=== PATIENT | female | born 1935 | race Caucasian/White ===

== ENCOUNTER 2017-12-26 01:45 | Emergency (ER) | payer MEDICARE ==
[~2017-12-26] VITALS: Ht 157.5 cm; Wt 61.2 kg
--- NOTE | 2017-12-26 02:40 | Diagnostic Imaging Report ---
History: Fall Comparison studies: None Technique: Axial images were obtained through the cervical region.. Coronal and sagittal images reconstructed from the axial data. Dose modulation, iterative reconstruction, and/or weight based adjustment of the mA/kV was utilized to reduce the radiation dose to as low as reasonably achievable. Intravenous contrast: None Findings: Soft tissues: Incidental atherosclerotic calcifications in the carotid bulbs and in the aortic arch Atlantoaxial articulation: Intact. Alignment: Increased lordosis centered at C4-5. No scoliosis. Cervicomedullary junction: No abnormalities. The foramen magnum is patent. Vertebrae: Moderately demineralized. No fractures, infection or neoplasm. Degenerative changes: Moderate at the atlantoaxial articulation. Mildly degenerated disks at C5-6 and C6-7. Degenerative changes of the facets throughout the cervical region is worse on the right at C4-5 and C5-6 Foraminal stenosis from C3 -C7, worst on the right at C5-6 is due to facet and uncovertebral arthrosis. No significant spinal canal stenosis. IMPRESSION: 1. No acute abnormalities. 2. Cannot adequately evaluate for ligament, spinal cord and or vascular abnormalities. 3. Degenerative changes as described. Signed by: Dr. Tima Simons M.D. on 12/26/2017 2:36 AM
[2017-12-26] MEDS ORDERED: ONDANSETRON HCL 4 MG ORAL DISINTEGRATING TAB PO ONE (03:15)
--- NOTE | 2017-12-26 03:23 | Diagnostic Imaging Report ---
HIP LEFT 2-3 VW (+/- PELVIS) Comparison: None Clinical history: Status post fall Findings: Slightly limited by rotation/positioning. Postsurgical changes status bilateral total hip arthroplasties. No periprosthetic fracture or dislocation. Significant osteoporosis of the proximal left femur about the arthroplasty. Mild lucency along the left acetabular medial screw. Impression: 1. No acute fracture. 2. Focal lucency about the left acetabular screw. This is nonspecific but can be seen with particle disease. Correlate with priors to document stability and interval change. Signed by: Dr Kayla Siddiqui MD on 12/26/2017 3:19 AM
--- NOTE | 2017-12-26 03:25 | Diagnostic Imaging Report ---
CHEST SINGLE (PORTABLE), 12/26/2017 1:49 AM Technique: CHEST SINGLE (PORTABLE) Comparison: None available. Clinical history: Status post fall, left hip pain Findings: See Impression Impression: 1. Lines/Tubes: Left chest wall dual-lead pacer. Median sternotomy wires intact. Right axillary clips. 2. Mildly enlarged cardiac silhouette. 3. Central vascular congestion. No overt edema or consolidation. 4. No effusion or pneumothorax. Signed by: Dr Kayla Siddiqui MD on 12/26/2017 3:21 AM
--- NOTE | 2017-12-26 03:30 | Diagnostic Imaging Report ---
History:fall Comparison studies: None Technique: Axial images were obtained from the skull base to the vertex. Coronal and sagittal images reconstructed from the axial data. Dose modulation, iterative reconstruction, and/or weight based adjustment of the mA/kV was utilized to reduce the radiation dose to as low as reasonably achievable. Intravenous contrast: None Findings: Scalp/skull: No abnormalities. Extra-axial spaces: No masses. No fluid collections. Brain sulci: Moderately prominent. Ventricles: Moderate compensatory dilatation. No hydrocephalus. Parenchyma: Ill defined hypodensities in the supratentorial white matter are small vessel ischemic changes. No masses, hemorrhage, acute or chronic cortical vascular insults. Sellar/suprasellar region: No abnormalities. Craniocervical junction: Patent foramen magnum. No Chiari one malformation. Incidental findings: Atherosclerotic calcifications in the carotid siphons and vertebral arteries. Impression: No acute abnormalities. Chronic findings: 1. Moderate generalized volume loss. 2. Mild supratentorial white matter small vessel ischemic changes. Signed by: Dr. Tima Simons M.D. on 12/26/2017 3:26 AM
[2017-12-26 05:05] VITALS: BP 135/75
== END 2017-12-26 05:17 ==
LOC: ER 01:45
DX: S00.83XA Contusion of other part of head, initial encounter (principal); W01.0XXA Fall on same level from slipping, tripping and stumbling without subsequent striking against object, initial encounter; Y93.01 Activity, walking, marching and hiking; Y92.128 Other place in nursing home as the place of occurrence of the external cause; F03.90 Unspecified dementia, unspecified severity, without behavioral disturbance, psychotic disturbance, mood disturbance, and anxiety
CPT/HCPCS: 70450; 71045; 72125; 99284

== ENCOUNTER 2018-01-07 18:51 | Inpatient (IN) | payer MEDICARE ==
[~2018-01-07] VITALS: Ht 152.4 cm; Wt 49.0 kg
[2018-01-07] MEDS ORDERED: SODIUM CHLORIDE 0.9% 1000ML 1,000 ML IV STA (19:30)
--- NOTE | 2018-01-07 20:12 | Diagnostic Imaging Report ---
Examination: CT head without contrast Clinical Indication: Fall; head trauma. Technique: Transaxial noncontrast images from the skull base through the vertex were obtained. Sagittal and coronal reformatted images were done. Dose modulation, iterative reconstruction, and/or weight based adjustment of the mA/kV was utilized to reduce the radiation dose to as low as reasonably achievable. Comparison: Head CT dated 12/26/2017. Findings: Scalp: No abnormalities. Bones: Intact. No fractures. No blastic or lytic lesions. Brain sulci: Moderate volume loss for patient's age. Ventricles: No hydrocephalus. Extra-axial space: No abnormalities. Parenchyma: There are mild confluent areas of low-attenuation within subcortical and periventricular white matter, nonspecific, but could represent microvascular ischemic disease. No masses, hemorrhage, or acute or chronic cortical based vascular insults. Suprasellar region: No abnormalities. Craniocervical junction: The foramen magnum is patent. No Chiari one malformation. Incidental findings: Atherosclerotic calcification of the cavernous and supraclinoid internal carotid and V4 segments of the bilateral vertebral arteries. Prior bilateral cataract surgery. Impression: 1. No acute intracranial abnormality when compared to prior head CT dated 12/26/2017. 2. Unchanged mild chronic microvascular ischemic change and moderate volume loss. Signed by: Dr. Suad Price M.D. on 01/07/2018 8:09 PM
--- NOTE | 2018-01-07 20:23 | Diagnostic Imaging Report ---
Examination: CT CERVICAL SPINE WITHOUT CONTRAST HISTORY:Neck injury and pain after fall. COMPARISON:12/26/2017. TECHNIQUE: Multidetector helical axial images were obtained without contrast from the foramen magnum to T1. Coronal and sagittal reformatted images were done. Bone and soft tissue windows were evaluated. Dose modulation, iterative reconstruction, and/or weight based adjustment of the mA/kV was utilized to reduce the radiation dose to as low as reasonably achievable. FINDINGS: Alignment:Normal alignment and lordosis. Vertebrae: Normal height with decreases bone mineralization. No acute fracture, infection or neoplasm. Disc space heights: Mildly narrowed at C5-C6. Caliber of spinal canal: Developmentally normal. Posterior fossa and craniocervical junction: Foramen magnum patent. No Chiari 1 malformation. Soft tissues: Atherosclerotic calcification of the bilateral carotid bifurcations. Degenerative changes: Mild bilateral facet arthropathy from C2-C5. Foraminal stenosis from C3 -C7, worst on the right at C5-6 is due to facet and uncovertebral arthrosis. No disc bulge/ herniation or significant canal stenosis. IMPRESSION: No acute abnormalities. No change from prior CT dated 12/26/2017. Signed by: Dr. Suad Price M.D. on 01/07/2018 8:20 PM
--- NOTE | 2018-01-07 20:33 | Diagnostic Imaging Report ---
Frontal and lateral views of the chest. HISTORY: Fall, trauma, pain COMPARISON: Chest radiograph December 26, 2017 DISCUSSION: Right anterior oblique rotation. Implanted left-sided cardiac device with dual-lead. Lungs: A small to moderate right pleural effusion with adjacent atelectasis. Underlying pathology could be obscured. Heart and mediastinum: The cardiomediastinal silhouette appears unremarkable. Postsurgical changes of the mediastinum. Bones: Diffusely decreased mineralization of the osseous structures limits bone detail. Multiple median sternotomy wires. IMPRESSION: 1. Small to moderate right pleural effusion with adjacent atelectasis. Recommend short term follow up routine PA and lateral chest radiographs, in 6-8 weeks, to evaluate for return to baseline. 2. Diffuse osseous demineralization. 3. No acute displaced fracture. Signed by: Dr. Simon Roberts D.O., M.M.M. on 01/07/2018 8:30 PM
--- NOTE | 2018-01-07 20:35 | Diagnostic Imaging Report ---
PELVIS - 1 VIEW HISTORY: Fall, trauma, pain COMPARISON: Left hip radiographs December 26, 2017 FINDINGS: Bones: Diffusely decreased mineralization of the osseous structures limits bone detail. Some of the osseous structures are partially obscured by stool and overlying bowel gas. No acute displaced fracture. Joints: Partially visualized bilateral total hip arthroplasties. Soft tissues: The soft tissues appear unremarkable. IMPRESSION: 1. Diffuse osseous demineralization. 2. No acute displaced fracture. 3. Unchanged appearance of the visualized portions of the bilateral total hip arthroplasties. Signed by: Dr. Simon Roberts D.O., M.M.M. on 01/07/2018 8:32 PM
--- NOTE | 2018-01-07 20:37 | Diagnostic Imaging Report ---
RIGHT SHOULDER - 2 VIEWS HISTORY: Fall, pain COMPARISON: None available. FINDINGS: Bones: Diffusely decreased mineralization of the osseous structures limits bone detail. No acute displaced fracture. Joints: Minimal acromioclavicular and glenohumeral degenerative changes. Soft tissues: Postsurgical changes at the right axilla and the visualized portions of the mediastinum. IMPRESSION: 1. Diffuse osseous demineralization. 2. No acute displaced fracture. Signed by: Dr. Simon Roberts D.O., M.M.M. on 01/07/2018 8:33 PM
[2018-01-07 20:53] LABS: BASOPHILS % 0.6 % (0.0-1.0); EOSINOPHILS # (AUTO) 0.1 (0.0-0.4); EOSINOPHILS % 1.2 % (0.0-6.0); HEMATOCRIT 36.5 % (34.2-44.1); HEMOGLOBIN 11.4 g/dL (12.0-16.0); LYMPHOCYTES % 15.3 % (18.0-39.1); MEAN CORPUSCULAR HEMOGLOBIN 28.9 pg (28-32); MEAN CORPUSCULAR HGB CONC 31.2 g/dL (31-35); MEAN CORPUSCULAR VOLUME 92.6 fL (81-99); MONOCYTES # (AUTO) 0.8 (0.2-0.8); MONOCYTES % 11.9 % (4.4-11.3); NEUTROPHILS # (AUTO) 4.7 (2.1-6.9); NEUTROPHILS % 70.6 % (38.7-80.0); PLATELET COUNT 324 x10e3/uL (140-360); RED BLOOD COUNT 3.94 x10e6/uL (3.6-5.1); RED CELL DISTRIBUTION WIDTH 14.9 % (11.7-14.4)
[2018-01-07 21:02] LABS: INR 0.93; PROTHROMBIN TIME 13.3 seconds (11.9-14.5)
[2018-01-07 21:03] LABS: PARTIAL THROMBOPLASTIN TIME 29.7 seconds (23.8-35.5)
[2018-01-07 21:05] LABS: BILIRUBIN,URINE 1+ (NEGATIVE); CLARITY,URINE SL CLOUDY (CLEAR); COLOR,URINE YELLOW (YELLOW); KETONES,URINE TRACE (NEGATIVE); LEUKOCYTE ESTERASE ,URINE NEGATIVE (NEGATIVE); NITRITE,URINE NEGATIVE (NEGATIVE); PROTEIN,URINE DIPSTICK TRACE (NEGATIVE); URINE UROBILINOGEN 1 mg/dL (0.2 - 1)
[2018-01-07 21:10] LABS: ALANINE AMINOTRANSFERASE 16 IU/L (0-55); ALBUMIN 3.6 g/dL (3.5-5.0); ALKALINE PHOSPHATASE 109 IU/L (40-150); ANION GAP 15.1 mmol/L (8-16); BLOOD UREA NITROGEN 30 mg/dL (7-26); BUN/CREATININE RATIO 21 (6-25); CALCIUM 10.7 mg/dL (8.4-10.2); CARBON DIOXIDE 23 mmol/L (22-29); CHLORIDE 107 mmol/L (98-107); CREATINE KINASE 148 IU/L (29-168); CREATININE, SERUM 1.43 mg/dL (0.57-1.11); EST GLOMERULAR FILTRATION RATE 35 ML/MIN (60-); GLUCOSE 139 mg/dL (74-118); MAGNESIUM 1.8 MG/DL (1.3-2.1); POTASSIUM 5.1 mmol/L (3.5-5.1); SODIUM 140 mmol/L (136-145)
[2018-01-07 21:15] LABS: BACTERIA,URINE MODERATE /HPF; EPITHELIAL CELLS,URINE FEW /LPF
[2018-01-07] MEDS ORDERED: LIDOCAINE 1% W/EPINEPHRINE 20 ML VIAL INJ ONE (22:00)
[2018-01-07] MEDS: SODIUM CHLORIDE 0.9% 1000ML 1,000 ML IV SCH (22:06)
[2018-01-07] MEDS ORDERED: SODIUM CHLORIDE 0.9% 50ML 50 ML ONE (22:12)
[2018-01-07] MEDS ORDERED: ACETAMINOPHEN 325 MG TAB PO PRN (22:15)
[2018-01-07] MEDS ORDERED: ONDANSETRON HCL INJ 2 MG/ML VIAL IV PRN (22:15)
[2018-01-07] MEDS: CEFTRIAXONE SOD 1 GM VIAL IV SCH (22:20)
[2018-01-07] MEDS: AZITHROMYCIN 500MG/NS 250 ML 250 ML IV SCH (23:20)
--- NOTE | 2018-01-07 23:44 | Diagnostic Imaging Report ---
EXAM: CT CHEST WO INDICATION: Multiple falls, pleural effusion, concern for pneumonia/fractures COMPARISON: PA and lateral view of the chest January 07, 2018 TECHNIQUE: Multidetector CT scanning of the chest was performed. Coronal and sagittal multiplanar reformations were obtained. Dose modulation, iterative reconstruction, and/or weight based adjustment of the mA/kV was utilized to reduce the radiation dose to as low as reasonably achievable. Routine protocol performed. IV Contrast: None CTDIvol has been reviewed. It is below the limits set by the Radiation Protocol Committee (RPC). FINDINGS: LUNGS AND AIRWAYS: The trachea and major bronchi are unremarkable. Mild septal thickening. Scattered tiny nodules are likely postinfectious/postinflammatory. Mild right lower lobe compressive atelectasis. PLEURA: Small layering right pleural effusion of high density (Hounsfield units in the 30s). No pneumothorax. HEART, MEDIASTINUM, VESSELS: The heart is at the upper limits of normal in size. No abnormal pericardial effusion. Marked calcified atherosclerotic changes of the thoracic aorta. The aorta is tortuous. Left approach cardiac device with leads in the right atrium and right ventricle. No mediastinal mass or lymphadenopathy. UPPER ABDOMEN: Nonspecific 1.7 cm hypodensity in the posterior right lobe of the liver, likely a cyst. Right adrenal gland 1.2 cm adenoma. Mild thickening of the left adrenal gland. Large hiatal hernia with the fundus of the stomach intrathoracic. MUSCULOSKELETAL: Right axillary surgical clips. Right breast mastectomy. Healing right anterior 4th through 7th rib fractures. Acute appearing right lateral 8th through 11th rib fractures. Healing left anterior first and second rib fractures and age indeterminate nondisplaced left anterior third and fourth rib fractures. Old posterior left eighth rib fracture. Chronic appearing marked compression deformity of the T4 vertebral body. The bones are demineralized. IMPRESSION: Acute appearing right rib fractures 8 through 11. Associated small right hemothorax. No pneumothorax. Multiple additional right and left healing rib fractures. Signed by: Dr. Jen Prado M.D. on 01/07/2018 11:41 PM
[2018-01-08] VITALS (9 sets, daily range): BP systolic 109–138; BP diastolic 56–75
[2018-01-08] MEDS ORDERED: ATORVASTATIN CA10 MG PO (03:12)
[2018-01-08] MEDS ORDERED: D3-5050000 UNIT PO (03:12)
[2018-01-08] MEDS ORDERED: DOCUSATE SODIU100 MG PO (03:12)
[2018-01-08] MEDS ORDERED: ACETAMINOPHEN325 M1 PO (03:12)
[2018-01-08] MEDS ORDERED: CYANOCOBALAMIN5 GM PO (03:12)
[2018-01-08] MEDS ORDERED: AMIODARONE HCL200 MG PO (03:12)
[2018-01-08] MEDS ORDERED: ASPIR 8181 MG PO (03:12)
[2018-01-08] MEDS ORDERED: ARICEPT5 MG PO (03:12)
[2018-01-08] MEDS ORDERED: METOPROLOL TART25 MG PO (03:46)
[2018-01-08] MEDS ORDERED: POLYETHYLENE GL17 GM PO (03:46)
[2018-01-08] MEDS ORDERED: LASIX40 MG PO (03:46)
[2018-01-08] MEDS ORDERED: OMEPRAZOLE20 MG PO (03:46)
[2018-01-08] MEDS ORDERED: ELIQUIS PO (03:46)
[2018-01-08] MEDS ORDERED: LASIX20 MG PO (03:46)
[2018-01-08] MEDS ORDERED: LOSARTAN POTASS25 MG PO (03:46)
[2018-01-08] MEDS ORDERED: POTASSIUM 25 M25 MEQ PO (03:46)
[2018-01-08] MEDS ORDERED: POTASSIUM CHLO10 ME1 PO (03:46)
[2018-01-08 07:05] LABS: CREATINE KINASE 90 IU/L (29-168)
[2018-01-08 07:10] LABS: BASOPHILS % 0.5 % (0.0-1.0); EOSINOPHILS # (AUTO) 0.1 (0.0-0.4); EOSINOPHILS % 2.4 % (0.0-6.0); HEMATOCRIT 27.5 % (34.2-44.1); HEMOGLOBIN 8.4 g/dL (12.0-16.0); LYMPHOCYTES # (AUTO) 0.9 (1.0-3.2); LYMPHOCYTES % 21.1 % (18.0-39.1); MEAN CORPUSCULAR HEMOGLOBIN 29.3 pg (28-32); MEAN CORPUSCULAR HGB CONC 30.5 g/dL (31-35); MEAN CORPUSCULAR VOLUME 95.8 fL (81-99); MONOCYTES # (AUTO) 0.5 (0.2-0.8); MONOCYTES % 12.5 % (4.4-11.3); NEUTROPHILS # (AUTO) 2.6 (2.1-6.9); PLATELET COUNT 216 x10e3/uL (140-360); RED BLOOD COUNT 2.87 x10e6/uL (3.6-5.1); RED CELL DISTRIBUTION WIDTH 14.6 % (11.7-14.4)
[2018-01-08] MEDS: CEFTRIAXONE SOD 1 GM VIAL IV SCH ×2 (09:15→21:00)
[2018-01-08] MEDS: SODIUM CHLORIDE 0.9% 1000ML 1,000 ML IV SCH ×2 (09:15→16:06)
[2018-01-08] MEDS ORDERED: POLYETHYLENE GLYCOL 3350 17 GM PACK PO PRN ×2 (11:15)
[2018-01-08] MEDS ORDERED: ACETAMINOPHEN 325 MG TAB PO PRN ×2 (11:15→11:45)
[2018-01-08] MEDS ORDERED: LOSARTAN POTASSIUM 25 MG TAB PO PRN (11:15)
[2018-01-08 11:34] LABS: BLOOD UREA NITROGEN 28 mg/dL (8-26); CARBON DIOXIDE 23 mmol/L (22-32); CHLORIDE 113 mmol/L (101-111); SODIUM 144 mmol/L (136-144)
[2018-01-08 11:35] LABS: BUN/CREATININE RATIO 35 (6-25); CREATININE, SERUM 0.8 mg/dL (0.6-1.1); EST GLOMERULAR FILTRATION RATE > 60 ML/MIN (60-); GLUCOSE 141 mg/dL (74-118)
[2018-01-08 11:38] LABS: ALANINE AMINOTRANSFERASE 13 IU/L (0-55); ALBUMIN/GLOBULIN RATIO 1.1 (0.8-2.0); ALKALINE PHOSPHATASE 91 IU/L (40-150)
[2018-01-08 14:32] LABS: CALCIUM 8.7 mg/dL (8.4-10.2)
[2018-01-08] MEDS: DOCUSATE SODIUM 100 MG CAP PO SCH (16:05)
[2018-01-08] MEDS: APIXAB 2.5 MG TABLET PO SCH (16:05)
[2018-01-08] MEDS: POTASSIUM CHLORIDE 10MEQ EA PO SCH (16:05)
[2018-01-08] MEDS: METOPROLOL TARTRATE 25 MG TAB PO SCH (16:06)
[2018-01-08] MEDS ORDERED: NON-FORMULARY MEDICATION ([Eliquis] 2.5 MG) PO SCH (17:00)
[2018-01-08] MEDS ORDERED: LORAZEPAM INJ 2 MG/ML VIAL IV PRN (17:30)
[2018-01-08 17:43] LABS: CREATINE KINASE MB 1.5 ng/mL (0-5.0)
[2018-01-08] MEDS: ATORVASTATIN 10 MG TAB PO SCH (21:00)
[2018-01-08] MEDS: DONEPEZIL HCL 5 MG TAB PO SCH (21:00)
[2018-01-08] MEDS: AZITHROMYCIN 500MG/NS 250 ML 250 ML IV SCH (21:00)
[2018-01-09] VITALS (9 sets, daily range): BP systolic 101–155; BP diastolic 56–75
[2018-01-09 06:16] LABS: BASOPHILS % 0.8 % (0.0-1.0); EOSINOPHILS # (AUTO) 0.2 (0.0-0.4); EOSINOPHILS % 4.3 % (0.0-6.0); HEMATOCRIT 30.9 % (34.2-44.1); HEMOGLOBIN 9.3 g/dL (12.0-16.0); LYMPHOCYTES % 25.3 % (18.0-39.1); MEAN CORPUSCULAR HEMOGLOBIN 28.6 pg (28-32); MEAN CORPUSCULAR HGB CONC 30.1 g/dL (31-35); MEAN CORPUSCULAR VOLUME 95.1 fL (81-99); MONOCYTES # (AUTO) 0.5 (0.2-0.8); MONOCYTES % 12.3 % (4.4-11.3); NEUTROPHILS # (AUTO) 2.3 (2.1-6.9); NEUTROPHILS % 56.5 % (38.7-80.0); PLATELET COUNT 244 x10e3/uL (140-360); RED BLOOD COUNT 3.25 x10e6/uL (3.6-5.1); RED CELL DISTRIBUTION WIDTH 14.7 % (11.7-14.4)
[2018-01-09 07:32] LABS: ANION GAP 11.4 mmol/L (8-16); BLOOD UREA NITROGEN 16 mg/dL (7-26); BUN/CREATININE RATIO 22 (6-25); CALCIUM 8.5 mg/dL (8.4-10.2); CARBON DIOXIDE 21 mmol/L (22-29); CHLORIDE 111 mmol/L (98-107); CREATININE, SERUM 0.73 mg/dL (0.57-1.11); EST GLOMERULAR FILTRATION RATE > 60 ML/MIN (60-); GLUCOSE 85 mg/dL (74-118); MAGNESIUM 1.6 MG/DL (1.3-2.1); POTASSIUM 4.4 mmol/L (3.5-5.1); SODIUM 139 mmol/L (136-145)
[2018-01-09] MEDS ORDERED: CHOLECALCIFEROL 1000 UNIT PO SCH (09:00)
[2018-01-09] MEDS ORDERED: CYANOCOBALAMIN 1000 MCG PO SCH (09:00)
[2018-01-09] MEDS ORDERED: PANTOPRAZOLE SOD 40 MG TABEC PO SCH (09:00)
[2018-01-09] MEDS: ASPIRIN 81 MG CHEW TAB PO SCH (09:53)
[2018-01-09] MEDS: FUROSEMIDE 20 MG TAB PO SCH (09:53)
[2018-01-09] MEDS: POTASSIUM CHLORIDE 10MEQ EA PO SCH ×2 (09:53→18:09)
[2018-01-09] MEDS: DOCUSATE SODIUM 100 MG CAP PO SCH ×2 (09:53→18:09)
[2018-01-09] MEDS: APIXAB 2.5 MG TABLET PO SCH ×2 (09:53→18:09)
[2018-01-09] MEDS: AMIODARONE HCL 200 MG TAB PO SCH (09:53)
[2018-01-09] MEDS: CYANOCOBALAMIN 1,000 MCG TAB PO SCH (09:54)
[2018-01-09] MEDS: PANTOPRAZOLE SOD 40 MG TABEC PO SCH (09:54)
[2018-01-09] MEDS: CHOLECALCIFEROL 1,000 UNIT TAB PO SCH (09:54)
[2018-01-09] MEDS: METOPROLOL TARTRATE 25 MG TAB PO SCH ×2 (09:54→18:10)
[2018-01-09] MEDS: SODIUM CHLORIDE 0.9% 1000ML 1,000 ML IV SCH (09:58)
[2018-01-09] MEDS: CEFTRIAXONE SOD 1 GM VIAL IV SCH ×2 (10:02→21:14)
[2018-01-09] MEDS: ATORVASTATIN 10 MG TAB PO SCH (21:14)
[2018-01-09] MEDS: AZITHROMYCIN 500MG/NS 250 ML 250 ML IV SCH (21:14)
[2018-01-09] MEDS: DONEPEZIL HCL 5 MG TAB PO SCH (21:14)
[2018-01-10 04:10] VITALS: BP 151/80
[2018-01-10 05:53] LABS: BASOPHILS # (AUTO) 0.1 (0.0-0.1); EOSINOPHILS # (AUTO) 0.1 (0.0-0.4); EOSINOPHILS % 2.7 % (0.0-6.0); HEMOGLOBIN 8.6 g/dL (12.0-16.0); LYMPHOCYTES # (AUTO) 0.8 (1.0-3.2); LYMPHOCYTES % 16.7 % (18.0-39.1); MEAN CORPUSCULAR HEMOGLOBIN 29.4 pg (28-32); MEAN CORPUSCULAR HGB CONC 31.9 g/dL (31-35); MEAN CORPUSCULAR VOLUME 92.2 fL (81-99); MONOCYTES # (AUTO) 0.5 (0.2-0.8); NEUTROPHILS # (AUTO) 3.3 (2.1-6.9); NEUTROPHILS % 68.2 % (38.7-80.0); PLATELET COUNT 234 x10e3/uL (140-360); RED BLOOD COUNT 2.93 x10e6/uL (3.6-5.1); RED CELL DISTRIBUTION WIDTH 14.5 % (11.7-14.4)
[2018-01-10 06:21] LABS: ANION GAP 12.7 mmol/L (8-16); BLOOD UREA NITROGEN 13 mg/dL (7-26); BUN/CREATININE RATIO 19 (6-25); CALCIUM 8.5 mg/dL (8.4-10.2); CARBON DIOXIDE 20 mmol/L (22-29); CHLORIDE 109 mmol/L (98-107); CREATININE, SERUM 0.68 mg/dL (0.57-1.11); EST GLOMERULAR FILTRATION RATE > 60 ML/MIN (60-); GLUCOSE 85 mg/dL (74-118); POTASSIUM 3.7 mmol/L (3.5-5.1); SODIUM 138 mmol/L (136-145)
--- NOTE | 2018-01-10 07:31 | Diagnostic Imaging Report ---
EXAMINATION: CHEST SINGLE (PORTABLE) INDICATION Congestion COMPARISON: CT Chest 01/07/18 and Chest radiograph 12/26/17. FINDINGS: TUBES and LINES: Left chest wall dual-lead pacer. LUNGS: Mild bilateral interstitial opacity. No evidence of lobar consolidation. PLEURA: Small right pleural effusion. No evidence of pneumothorax. HEART AND MEDIASTINUM: The cardiomediastinal silhouette is mildly enlarged. Status post CABG. BONES AND SOFT TISSUES: Right lower rib fractures are better characterized on CT from 01/07/18. Right axillary clips. Median sternotomy wires intact. UPPER ABDOMEN: No free air under the diaphragm. IMPRESSION: Findings of right lower rib fractures and small right pleural effusion, characterized as hemothorax on prior CT. Mild pulmonary interstitial edema. Signed by: Dr. Sahra Haider MD on 01/10/2018 7:28 AM
[2018-01-10 07:44] VITALS: BP 158/73
[2018-01-10] MEDS: ASPIRIN 81 MG CHEW TAB PO SCH (08:57)
[2018-01-10] MEDS: APIXAB 2.5 MG TABLET PO SCH ×2 (08:57→16:13)
[2018-01-10] MEDS: CEFTRIAXONE SOD 1 GM VIAL IV SCH (08:57)
[2018-01-10] MEDS: DOCUSATE SODIUM 100 MG CAP PO SCH ×2 (08:57→16:13)
[2018-01-10] MEDS: FUROSEMIDE 20 MG TAB PO SCH (08:57)
[2018-01-10] MEDS: METOPROLOL TARTRATE 25 MG TAB PO SCH ×2 (08:58→16:14)
[2018-01-10] MEDS: AMIODARONE HCL 200 MG TAB PO SCH (08:59)
[2018-01-10] MEDS: PANTOPRAZOLE SOD 40 MG TABEC PO SCH (08:59)
[2018-01-10] MEDS: POTASSIUM CHLORIDE 10MEQ EA PO SCH ×2 (08:59→16:14)
[2018-01-10] MEDS: CYANOCOBALAMIN 1,000 MCG TAB PO SCH (08:59)
[2018-01-10] MEDS: CHOLECALCIFEROL 1,000 UNIT TAB PO SCH (08:59)
[2018-01-10] MEDS: SODIUM CHLORIDE 0.9% 1000ML 1,000 ML IV SCH (10:06)
[2018-01-10 10:58] VITALS: BP 158/73
[2018-01-10 12:22] VITALS: BP 133/65
[2018-01-10 16:33] VITALS: BP 130/60
--- OUTSIDE RECORDS SUMMARY | 2018-01-15 12:10 | XMS REPORT | Clinical Summary ---
Author Author [facility] Organization [facility] Address Unknown Phone Unavailable Care Team Providers Care Aviation Engineer Name Role Phone Miles Gagnon MD PCP Allergies Active Allergy Reactions Severity Noted Date Comments Oxycodone 01/07/2018 Current Medications Prescription Sig. Disp. Refills Start End Date Status Date losartan (COZAAR) 25 MG Take 25 mg by mouth Active tablet daily. metoprolol tartrate Take 12.5 mg by mouth 2 Active (LOPRESSOR) 25 mg tablet (two) times a day. omeprazole (PriLOSEC) 20 Take 20 mg by mouth Active MG capsule daily. polyethylene glycol Take 17 g by mouth daily. Active (MIRALAX) 17 gram packet potassium chloride Take 10 mEq by mouth 2 Active (K-DUR,KLOR-CON) 10 MEQ (two) times a day. CR tablet aspirin (ECOTRIN) 81 MG Take 81 mg by mouth Active enteric coated tablet daily. atorvastatin (LIPITOR) 10 Take 10 mg by mouth Active MG tablet daily. cyanocobalamin (VITAMIN Take 1,000 mcg by mouth Active B-12) 1000 MCG tablet daily. cholecalciferol, vitamin Take 1,000 Units by mouth Active D3, (VITAMIN D3) 1,000 daily. unit tablet docusate sodium (COLACE) Take 100 mg by mouth 2 Active 100 MG capsule (two) times a day. donepezil (ARICEPT) 10 MG Take 10 mg by mouth Active tablet nightly. apixaban (ELIQUIS) 2.5 mg Take 2.5 mg by mouth 2 Active tablet (two) times a day. furosemide (LASIX) 20 mg Take 20 mg by mouth 2 Active tablet (two) times a day. Active Problems Not on file Encounters Date Type Specialty Care Team Description 01/07/2018 Emergency Emergency Medicine Nazanin Mendez MD Contusion of right shoulder, initial encounter (Primary Dx); Fall, initial encounter after 01/06/2017 Social History Tobacco Use Types Packs/Day Years Used Date Never Smoker Smokeless Tobacco: Never Used Alcohol Use Drinks/Week oz/Week Comments No Sex Assigned at Date Recorded Not on file Last Filed Vital Signs Vital Sign Reading Time Taken Blood Pressure 144/73 01/07/2018 3:15 AM CDT Pulse 69 01/07/2018 2:22 AM CDT Temperature 36.5 C (97.7 F) 01/07/2018 2:22 AM CDT Respiratory Rate 18 01/07/2018 2:22 AM CDT Oxygen Saturation 95% 01/07/2018 3:30 AM CDT Inhaled Oxygen - - Concentration Weight 45.4 kg (100 lb) 01/07/2018 2:51 AM CDT Height 152.4 cm (5') 01/07/2018 2:22 AM CDT Body Mass Index 19.53 01/07/2018 2:51 AM CDT Plan of Treatment Health Maintenance Due Date Last Done Comments SHINGRIX VACCINE (#1) 1984 ZOSTER VACCINE 1994 PNEUMOCOCCAL 11/09/1999 POLYSACCHARIDE VACCINE AGE 65 AND OVER PNEUMOCOCCAL-13 11/09/1999 INFLUENZA VACCINE 10/31/2017 Procedures Procedure Name Priority Date/Time Associated Diagnosis Comments XR SHOULDER 2+ VW RIGHT STAT 01/07/2018 Results for this 3:17 AM CDT procedure are in the results section. CT CERVICAL SPINE WO STAT 01/07/2018 Results for this CONTRAST 3:05 AM CDT procedure are in the results section. CT HEAD WO CONTRAST STAT 01/07/2018 Results for this 3:05 AM CDT procedure are in the results section. after 01/06/2017 Results * XR Shoulder 2+ Vw Right (01/07/2018 3:17 AM) Narrative Performed At Examination:XR SHOULDER 2VW RIGHT [facility] Clinical History: Fractureshoulder Comparison: None. Findings: 3 views of the right shoulder are obtained. No acute fracture or dislocation is seen. The joint spaces are within normal limits. Diffuse demineralization is noted. IMPRESSION: 1. No acute abnormality identified in the right shoulder. [id number] Procedure Note Interface, Radiology Results Incoming - 01/07/2018 3:26 AM CDT Examination: XR SHOULDER 2 VW RIGHT Clinical History: Fracture shoulder Comparison: None. Findings: 3 views of the right shoulder are obtained. No acute fracture or dislocation is seen. The joint spaces are within normal limits. Diffuse demineralization is noted. IMPRESSION: 1. No acute abnormality identified in the right shoulder. [id number] Performing Organization Address City/State/Zipcode Phone Number [facility] [phone] [place] [address] * CT Cervical Spine Wo Contrast (01/07/2018 3:05 AM) Narrative Performed At EXAMINATION: CT [facility]ERV[facility]INE WO CONTR[facility] CL[facility]ICAL HISTORY: fall COMPARISON:None TECHNIQUE: Noncontrast enhanced imaging through the cervical spine was performed with coronal and sagittal reconstructed images. CT imaging was performed with iterative reconstruction technique and/or automated exposure control to reduce radiation dose. FINDINGS: There is moderate height loss of the T3 vertebral body with linear sclerosis the T3 vertebral body. No fracture line is identified and there is no malalignment or retropulsion there is a result of this compression fracture. Vertebral body heights are otherwise maintained. There is no prevertebral soft tissue swelling. No significant listhesis is identified. No significant posterior disc disease or spinal canal narrowing. The visualized lung apices are clear. IMPRESSION: 1. No acute osseous abnormality of the cervical spine. 2. Age indeterminate, likely chronic compression fracture of the T3 vertebral body. [id number] Procedure Note Interface, Radiology Results Incoming - 01/07/2018 3:15 AM CDT EXAMINATION: CT CERVICAL SPINE WO CONTRAST CLINICAL HISTORY: fall COMPARISON: None TECHNIQUE: Noncontrast enhanced imaging through the cervical spine was performed with coronal and sagittal reconstructed images. CT imaging was performed with iterative reconstruction technique and/or automated exposure control to reduce radiation dose. FINDINGS: There is moderate height loss of the T3 vertebral body with linear sclerosis the T3 vertebral body. No fracture line is identified and there is no malalignment or retropulsion there is a result of this compression fracture. Vertebral body heights are otherwise maintained. There is no prevertebral soft tissue swelling. No significant listhesis is identified. No significant posterior disc disease or spinal canal narrowing. The visualized lung apices are clear. IMPRESSION: 1. No acute osseous abnormality of the cervical spine. 2. Age indeterminate, likely chronic compression fracture of the T3 vertebral body. [id number] Performing Organization Address City/State/Zipcode Phone Number [facility] [phone] [place] [address] * CT Head Wo Contrast (01/07/2018 3:05 AM) Narrative Performed At CT HEAD WO CONTRAST [facility] CLINICAL INDICATION:fall on eliquis TECHNIQUE: Routine unenhanced multidetector CT examination of the brain. CT imaging was performed with iterative reconstruction technique and/or automated exposure control to reduce radiation dose. COMPARISON:None FINDINGS: There is generalized volume loss. There is periventricular white matter hypoattenuation, compatible with chronic microangiopathic changes. There is no mass, mass effect or midline shift. No acute intracranial hemorrhage is identified. There is no extra-axial fluid collection. Basal cisterns are patent. Aside from cataract surgery, the orbits are unremarkable. The paranasal sinuses and mastoid air cells are clear. The calvarium is intact without depressed fracture. IMPRESSION: No acute intracranial abnormality. [id number] Procedure Note Interface, Radiology Results Incoming - 01/07/2018 3:[address] HEAD WO CONTRAST CLINICAL INDICATION: fall on eliquis TECHNIQUE: Routine unenhanced multidetector CT examination of the brain. CT imaging was performed with iterative reconstruction technique and/or automated exposure control to reduce radiation dose. COMPARISON: None FINDINGS: There is generalized volume loss. There is periventricular white matter hypoattenuation, compatible with chronic microangiopathic changes. There is no mass, mass effect or midline shift. No acute intracranial hemorrhage is identified. There is no extra-axial fluid collection. Basal cisterns are patent. Aside from cataract surgery, the orbits are unremarkable. The paranasal sinuses and mastoid air cells are clear. The calvarium is intact without depressed fracture. IMPRESSION: No acute intracranial abnormality. [id number] Performing Organization Address City/State/Zipcode Phone Number [facility] [address] [place] [address] after 01/06/2017 Insurance Payer Benefit Subscriber ID Type Phone Address Plan / Group MEDICARE MEDICARE xxxxxxxxxx Medicare [place], [place] PART A AND B AARP AARP xxxxxxxxxxx Commercial SUPPLEMENT [place] [id number]
--- OUTSIDE RECORDS SUMMARY | 2018-01-15 12:10 | XMS REPORT ---
Author Author [facility] Address Unknown Phone Unavailable Care Team Providers Care Certified Paralegal Name Role Phone GRACE EVANS Unavailable Unavailable Nasim AREVALO Unavailable Unavailable Problems This patient has no known problems. Allergies, Adverse Reactions, Alerts This patient has no known allergies or adverse reactions. Medications This patient has no known medications. Results Test Description Test Time Test Comments Text Results Atomic Results Result Comments CHEST SINGLE (PORTABLE) 2018-01-10 07:24:00 [place] [address] Patient Name: ODILIA ARIAS MR #: [id number] : 1935 Age/Sex: 82/F Req #: [id number] Adm Physician: GRACE EVANS MD Ordered by: GRACE EVANS MD Report #: [id number] Location: [facility] Room/Bed: [facility] Procedure: [id number] DX/CHEST SINGLE (PORTABLE) Exam Date: 01/10/18 Exam Time: 0515 REPORT STATUS: Signed EXAMINATION: CHEST SINGLE (PORTABLE) INDICATION Congestion COMPARISON: CT Chest 01/07/18 and Chest radiograph 12/26/17. FINDINGS: TUBES and LINES: Left chest wall dual-lead pacer. LUNGS: Mild bilateral interstitial opacity. No evidence of lobar consolidation. PLEURA: Small right pleural effusion. No evidence of pneumothorax. HEART AND MEDIASTINUM: The cardiomediastinal silhouette is mildly enlarged. Status post CABG. BONES AND SOFT TISSUES: Right lower rib fractures are better characterized on CT from 01/07/18. Right axillary clips. Median sternotomy wires intact. UPPER ABDOMEN: No free air under the diaphragm. IMPRESSION: Findings of right lower rib fractures and small right pleural effusion, characterized as hemothorax on prior CT. Mild pulmonary interstitial edema. Signed by: Dr. José Miguel Awad MD on 01/10/2018 7:28 AM Dictated By: JOSÉ MIGUEL AWAD MD 7 Transcribed By: LIAT on 01/10/18727 COPY TO: GRACE EVANS MD CT CHEST WO 2018-01-07 23:26:00 [place] [address] Patient Name: ODILIA ARIAS MR #: [id number] : 1935 Age/Sex: 82/F Req #: [id number] Adm Physician: GRACE EVANS MD Ordered by: DANYELL AGUDELO MD Report #: [id number] Location: [facility] Room/Bed: [place] [address] Procedure: [id number] CT/CT CHEST WO Exam Date: Exam Time: REPORT STATUS: Signed EXAM: CT CHEST WO INDICATION: Multiple falls, pleural effusion, concern for pneumonia/fractures COMPARISON: PA and lateral view of the chest January 07, 2018 TECHNIQUE: Multidetector CT scanning of the chest was performed. Coronal and sagittal multiplanar reformations were obtained. Dose modulation, iterative reconstruction, and/or weight based adjustment of the mA/kV was utilized to reduce the radiation dose to as low as reasonably achievable. Routine protocol performed. IV Contrast: None CTDIvol has been reviewed. It is below the limits set by the Radiation Protocol Committee (RPC). FINDINGS: LUNGS AND AIRWAYS: The trachea and major bronchi are unremarkable. Mild septal thickening. Scattered tiny nodules are likely postinfectious/postinflammatory. Mild right lower lobe compressive atelectasis. PLEURA: Small layering right pleural effusion of high density (Hounsfield units in the 30s). No pneumothorax. HEART, MEDIASTINUM, VESSELS: The heart is at the upper limits of normal in size. No abnormal pericardial effusion. Marked calcified atherosclerotic changes of the thoracic aorta. The aorta is tortuous. Left approach cardiac device with leads in the right atrium and right ventricle. No mediastinal mass or lymphadenopathy. UPPER ABDOMEN: Nonspecific 1.7 cm hypodensity in the posterior right lobe of the liver, likely a cyst. Right adrenal gland 1.2 cm adenoma. Mild thickening of the left adrenal gland. Large hiatal hernia with the fundus of the stomach intrathoracic. MUSCULOSKELETAL: Right axillary surgical clips. Right breast mastectomy. Healing right anterior 4th through 7th rib fractures. Acute appearing right lateral 8th through 11th rib fractures. Healing left anterior first and second rib fractures and age indeterminate nondisplaced lef t anterior third and fourth rib fractures. Old posterior left eighth rib fracture. Chronic appearing marked compression deformity of the T4 vertebral body. The bones are demineralized. IMPRESSION: Acute appearing right rib fractures 8 through 11. Associated small right hemothorax. No pneumothorax. Multiple additional right and left healing rib fractures. Signed by: Dr. Va Prado M.D. on 01/07/2018 11:41 PM Dictated By: VA PRADO MD 2341 Transcribed By: LIAT on 01/07/18 2341 COPY TO: DANYELL AGUDELO MD SHOULDER RIGHT COMPLETE 2018-01-07 20:32:00 [place] [address] Patient Name: ODILIA ARIAS MR #: [id number] : 1935 Age/Sex: 82/F Req #: [id number] Adm Physician: Ordered by: FREDERICK OJEDA OUTSIDE UPHOLSTERER Report #: [id number] Location: ER Room/Bed: Procedure: [id number] DX/SHOULDER RIGHT COMPLETE Exam Date: 01/07/18 Exam Time: 1955 REPORT STATUS: Signed RIGHT SHOULDER - 2 VIEWS HISTORY: Fall, pain COMPARISON: None available. FINDINGS: Bones: Diffusely decreased mineralization of the osseous structures limits bone detail. No acute displaced fracture. Joints: Minimal acromioclavicular and glenohumeral degenerative changes. Soft tissues: Postsurgical changes at the right axilla and the visualized portions of the mediastinum. IMPRESSION: 1. Diffuse osseous demineralization. 2. No acute displaced fracture. Signed by: Dr. Simon Roberts D.O., M.M.M. on 01/07/2018 8:33 PM Dictated By: SIMON ROBERTS DO 32 Transcribed By: LIAT on 01/07/182032 COPY TO: FREDERICK OJEDA NP PELVIS AP 1-2 VIEWS 2018-01-07 20:30:00 [place] [address] Patient Name: ODILIA ARIAS MR #: [id number] : 1935 Age/Sex: 82/F Req #: [id number] Adm Physician: Ordered by: FREDERICK OJEDA NP Report #: [id number] Location: ER Room/Bed: Procedure: [id number] DX/PELVIS AP 1-2 VIEWS Exam Date: 01/07/18 Exam Time: 1955 REPORT STATUS: Signed PELVIS - 1 VIEW HISTORY: Fall, trauma, pain COMPARISON: Left hip radiographs December 26, 2017 FINDINGS: Bones: Diffusely decreased mineralization of the osseous structures limits bone detail. Some of the osseous structures are partially obscured by stool and overlying bowel gas. No acute displaced fracture. Joints: Partially visualized bilateral total hip arthroplasties. Soft tissues: The soft tissues appear unremarkable. IMPRESSION: 1. Diffuse osseous demineralization. 2. No acute displaced fracture. 3. Unchanged appearance of the visualized portions of the bilateral total hip arthroplasties. Signed by: Dr. Simon Roberts D.O., M.M.M. on 01/07/2018 8:32 PM Dictated By: SIMON ROBERTS DO 31 Transcribed By: LIAT on 01/07/182031 COPY TO: FREDERICK OJEDA OUTSIDE UPHOLSTERER CHEST 2 VIEWS 2018-01-07 20:27:00 [place] [address] Patient Name: ODILIA ARIAS MR #: [id number] : 1935 Age/Sex: 82/F Req #: [id number] Adm Physician: Ordered by: FREDERICK OJEDA OUTSIDE UPHOLSTERER Report #: [id number] Location: ER Room/Bed: Procedure: [id number] DX/CHEST 2 VIEWS Exam Date: 01/07/18 Exam Time: 1955 REPORT STATUS: Signed Frontal and lateral views of the chest. HISTORY: Fall, trauma, pain COMPARISON: Chest radiograph December 26, 2017 DISCUSSION: Right anterior oblique rotation. Implanted left-sided cardiac device with dual-lead. Lungs: A small to moderate right pleural effusion with adjacent atelectasis. Underlying pathology could be obscured. Heart and mediastinum: The cardiomediastinal silhouette appears unremarkable. Postsurgical changes of the mediastinum. Bones: Diffusely decreased mineralization of the osseous structures limits bone detail. Multiple median sternotomy wires. IMPRESSION: 1. Small to moderate right pleural effusion with adjacent atelectasis. Recommend short term follow up routine PA and lateral chest radiographs, in 6-8 weeks, to evaluate for return to [facility]. 2. Diffuse osseous demineralization. 3. No acute displaced fracture. Signed by: Dr. Simon Roberts D.O., M.M.M. on 01/07/2018 8:30 PM Dictated By: SIMON ROBERTS DO 29 Transcribed By: LIAT on 01/07/182029 COPY TO: FREDERICK OJEDA NP CT CERVICAL SPINE WO 2018-01-07 20:13:00 [place] [address] Patient Name: ODILIA ARIAS MR #: [id number] : 1935 Age/Sex: 82/F Req #: [id number] [facility] Physician: Ordered by: FREDERICK OJEDA NP Report #: [id number] Location: ER Room/Bed: Procedure: [id number] CT/CT CERVICAL SPINE WO Exam Date: 01/07/18 Exam Time: 1929 REPORT STATUS: Signed Examination: CT CERVICAL SPINE WITHOUT CONTRAST HISTORY:Neck injury and pain after fall. COMPARISON:12/26/2017. TECHNIQUE: Multidetector helical axial images were obtained without contrast from the foramen magnum to T1. Coronal and sagittal reformatted images were done. Bone and soft tissue windows were evaluated. Dose modulation, iterative reconstruction, and/or weight based adjustment of the mA/kV was utilized to reduce the radiation dose to as low as reasonably achievable. FINDINGS: Alignment:Normal alignment and lordosis. Vertebrae: Normal height with decreases bone mineralization. No acute fracture, infection or neoplasm. Disc space heights: Mildly narrowed at C5-C6. Caliber of spinal canal: Developmentally normal. Posterior fossa and craniocervical junction: Foramen magnum patent. No Chiari 1 malformation. Soft tissues: Atherosclerotic calcification of the bilateral carotid bifurcations. Degenerative changes: Mild bilateral facet arthropathy from C2-C5. Foraminal stenosis from C3 -C7, worst on the right at C5-6 is due to facet and uncovertebral arthrosis. No disc bulge/ herniation or significant canal stenosis. IMPRESSION: No acute abnormalities. No change from prior CT dated 12/26/2017. Signed by: Dr. Deric Price M.D. on 01/07/2018 8:20 PM Dictated By: DERIC SANTANA MD 19 Transcribed By: LIAT on 01/07/182019 COPY TO: FREDERICK OJEDA NP CT BRAIN WO 2018-01-07 20:03:00 [place] [address] Patient Name: ODILIA ARIAS MR #: [id number] : 1935 Age/Sex: 82/F Req #: [id number] Adm Physician: Ordered by: FREDERICK OJEDA NP Report #: [id number] Location: ER Room/Bed: Procedure: [id number] CT/CT BRAIN WO Exam Date: Exam Time: REPORT STATUS: Signed Examination: CT head without contrast Clinical Indication: Fall; head trauma. Technique: Transaxial noncontrast images from the skull base through the vertex were obtained. Sagittal and coronal reformatted images were done. Dose modulation, iterative reconstruction, and/or weight based adjustment of the mA/kV was utilized to reduce the radiation dose to as low as reasonably achievable. Comparison: Head CT dated 12/26/2017. Findings: Scalp: No abnormalities. Bones: Intact. No fractures. No blastic or lytic lesions. Brain sulci: Moderate volume loss for patient's age. Ventricles: No hydrocephalus. Extra-axial space: No abnormalities. Parenchyma: There are mild confluent areas of low-attenuation within subcortical and periventricular white matter, nonspecific, but could represent microvascular ischemic disease. No masses, hemorrhage, or acute or chronic cortical based vascular insults. Suprasellar region: No abnormalities. Craniocervical junction: The foramen magnum is patent. No Chiari one malformation. Incidental findings: Atherosclerotic calcification of the cavernous and supraclinoid internal carotid and V4 segments of the bilateral vertebral arteries. Prior bilateral cataract surgery. Impression: 1. No acute intracranial abnormality when compared to prior head CT dated 12/26/2017. 2. Unchanged mild chronic microvascular ischemic change and moderate v olume loss. Signed by: Dr. Deric Price M.D. on 01/07/2018 8:09 PM Dictated By: DERIC SANTANA MD 08 Transcribed By: LIAT on 01/07/182008 COPY TO: FREDERICK OJEDA NP CT BRAIN WO 2017-12-26 03:24:00 [place] [address] Patient Name: ODILIA ARIAS MR #: [id number] : 1935 Age/Sex: 82/F Req #: [id number] Adm Physician: Ordered by: WILMRE AREVALO MD Report #: [id number] Location: Room/Bed: Procedure: [id number] CT/CT BRAIN WO Exam Date: 12/26/17 Exam Time: 219 REPORT STATUS: Signed History:fall Comparison studies: None Technique: Axial images were obtained from the skull base to the vertex. Coronal and sagittal images reconstructed from the axial data. Dose modulation, iterative reconstruction, and/or weight based adjustment of the mA/kV was utilized to reduce the radiation dose to as low as reasonably achievable. Intravenous contrast: None Findings: Scalp/skull: No abnormalities. Extra-axial spaces: No masses. No fluid collections. Brain sulci: Moderately prominent. Ventricles: Moderate compensatory dilatation. No hydrocephalus. Parenchyma: Ill defined hypodensities in the supratentorial white matter are small vessel ischemic changes. No masses, hemorrhage, acute or chronic cortical vascular insults. Sellar/suprasellar region: No abnormalities. Craniocervical junction: Patent foramen magnum. No Chiari one malformation. Incidental findings: Atherosclerotic calcifications in the carotid siphons and vertebral arteries. Impression: No acute abnormalities. Chronic findings: 1. Moderate generalized volume loss. 2. Mild supratentorial white matter small vessel ischemic changes. Signed by: Dr. Tima Simons M.D. on 12/26/2017 3:26 AM Dictated By: TIMA SHUKLA MD, MD 5 Transcribed By: LIAT on 12/26/17325 COPY TO: WILMER AREVALO MD CHEST SINGLE (PORTABLE) 2017-12-26 03:19:00 [place] [address] Patient Name: ODILIA ARIAS MR #: [id number] : 1935 Age/Sex: 82/F Req #: [id number] Adm Physician: Ordered by: WILMER AREVALO MD Report #: [id number] Location: ER Room/Bed: Procedure: [id number] DX/CHEST SINGLE (PORTABLE) Exam Date: 12/26/17 Exam Time: 0235 REPORT STATUS: Signed CHEST SINGLE (PORTABLE), 12/26/2017 1:49 AM Technique: CHEST SINGLE (PORTABLE) Comparison: None available. Clinical history: Status post fall, left hip pain Findings: See Impression Impression: 1. Lines/Tubes: Left chest wall dual-lead pacer. Median sternotomy wires intact. Right axillary clips. 2. Mildly enlarged cardiac silhouette. 3. Central vascular congestion. No overt edema or consolidation. 4. No effusion or pneumothorax. Signed by: Dr Coleen Siddiqui MD on 12/26/2017 3:21 AM Dictated By: COLEEN SIDDIQUI MD 0 Transcribed By: LIAT on 12/26/17320 COPY TO: WILMER AREVALO MD HIP LEFT 2-3 VW (+/- PELVIS) 2017-12-26 03:05:00 [place] [address] Patient Name: ODILIA ARIAS MR #: [id number] : 1935 Age/Sex: 82/F Req #: [id number] Adm Physician: Ordered by: WILMER AREVALO MD Report #: [id number] Location: ER Room/Bed: Procedure: DX/HIP LEFT 2-3 VW (+/- PELVIS) Exam Date: Exam Time: REPORT STATUS: Signed HIP LEFT 2-3 VW (+/- PELVIS) Comparison: None Clinical history: Status post fall Findings: Slightly limited by rotation/positioning. Postsurgical changes status bilateral total hip arthroplasties. No periprosthetic fracture or dislocation. Significant osteoporosis of the proximal left femur about the arthroplasty. Mild lucency along the left acetabular medial screw. Impression: 1. No acute fracture. 2. Focal lucency about the left acetabular screw. This is nonspecific but can be seen with particle disease. Correlate with priors to document stability and interval change. Signed by: Dr Coleen Siddiqui MD on 12/26/2017 3:19 AM Dictated By: COLEEN SIDDIQUI MD 8 Transcribed By: LIAT on 12/26/17318 COPY TO: WILMER AREVALO MD CT CERVICAL SPINE WO 2017-12-26 02:32:00 [place] [address] Patient Name: ODILIA ARIAS MR #: [id number] : 1935 Age/Sex: 82/F Req #: [id number] Adm Physician: Ordered by: WILMER AREVALO MD Report #: [id number] Location: ER Room/Bed: Procedure: CT/CT CERVICAL SPINE WO Exam Date: Exam Time: REPORT STATUS: Signed History: Fall Comparison studies: None Technique: Axial images were obtained through the cervical region.. Coronal and sagittal images reconstructed from the axial data. Dose modulation, iterative reconstruction, and/or weight based adjustment of the mA/kV was utilized to reduce the radiation dose to as low as reasonably achievable. Intravenous contrast: None Findings: Soft tissues: Incidental atherosclerotic calcifications in the carotid bulbs and in the aortic arch Atlantoaxial articulation: Intact. Alignment: Increased lordosis centered at C4-5. No scoliosis. Cervicomedullary junction: No abnormalities. The foramen magnum is patent. Vertebrae: Moderately demineralized. No fractures, infection or neoplasm. Degenerative changes: Moderate at the atlantoaxial articulation. Mildly degenerated disks at C5-6 and C6-7. Degenerative changes of the facets throughout the cervical region is worse on the right at C4-5 and C5-6 Foraminal stenosis from C3 -C7, worst on the right at C5-6 is due to facet and uncovertebral arthrosis. No significant spinal canal stenosis. IMPRESSION: 1. No acute abnormalities. 2. Cannot adequately evaluate for ligament, spinal cord and or vascular abnormalities. 3. Degenerative changes as described. Signed by: Dr. Tima Simons M.D. on 12/26/2017 2:36 AM Dictated By: TIMA SIMONS MD, MD 5 Transcribed By: LIAT on 12/26/17235 COPY TO: WILMER AREVALO MD
--- NOTE | 2018-03-06 01:39 | Discharge Summary ---
CHIEF COMPLAINT: Acute renal insufficiency, status post falls with laceration. FINAL DIAGNOSES: 1. Status post fall. 2. Closed head injury. 3. Laceration, right forehead. 4. Fracture, right eight through eleventh rib. DISPOSITION: [facility]. Ikmasx-nhbzw-hw[age]-old female, [facility], known history of essential hypertension, dementia, atrial fib, hyperlipidemia, chronic back pain, brought to the ER after sustaining a fall at the [facility] facility, sustaining a right forehead laceration. Noted by her daughter's account that the patient has been having falling episodes frequently over the last 2 weeks. She was worked up and evaluated in the emergency room. Vital signs were showing a temperature of 97.6, BP 100/88, pulse 72. Noted to have a large laceration over the right eyebrow. Neurological was showing no focal deficits. X-rays of chest were revealing rib fractures, right side. Blood studies were showing evidence of acute kidney injury. She was then admitted to facility for care regarding status post fall with a closed head injury, laceration to the right forehead, coronary artery disease, right rib fractures, questionable UTI, acute renal failure. Will begin IV fluids, begin IV antibiotic management. We will be culturing the patient's blood and urine. Her daily medications were being continuing as well. She was on the med-surg floor, receiving a cardiac diet, resting comfortably. She was in no acute distress. Vital signs were stable. She was started on azithromycin as well as ceftriaxone, given acetaminophen for pain management. Laboratory studies were showing stable electrolytes. Kidney functions, BUN 30, creatinine 1.43. Glucose 139. CBC was showing some evidence of anemia with a hemoglobin of 8.4, white cell count was 4100. Her care was continuing. Still noted to have some issues with confusion. Followup chest x-rays were being monitored, evaluation of her lung status regarding her rib fractures. Her cultures are unremarkable. Her hemoglobin remained stable in the mid 8s, and she was cleared [facility] condition. EKGs are showing electronic ventricular pacemaker capture. She returned back to [facility]. She will continue on her current MARs, her current dietary. Her code status will remain a DNR. She is only oriented 2 out of 3. I will be monitoring her progress at that facility. I will be evaluating her status routinely. The staff will be contacting me in my office as necessary. Dictated By: MARTIN Cervantes Job#: [id number]
== END 2018-01-10 19:17 | disposition home or self-care (01) | DRG 579 ==
LOC: ER 18:51 → ERHOLD 22:33 → MED/SURG3 01-08 00:19
PROC: 0JQ10ZZ Repair Face Subcutaneous Tissue and Fascia, Open Approach (ICD-10-PCS; principal; 2018-01-07)
DX: S01.81XA Laceration without foreign body of other part of head, initial encounter (principal); J18.9 Pneumonia, unspecified organism; N17.9 Acute kidney failure, unspecified; S22.41XA Multiple fractures of ribs, right side, initial encounter for closed fracture; N39.0 Urinary tract infection, site not specified; W01.0XXA Fall on same level from slipping, tripping and stumbling without subsequent striking against object, initial encounter; Y93.89 Activity, other specified; Y92.129 Unspecified place in nursing home as the place of occurrence of the external cause; Z79.01 Long term (current) use of anticoagulants; I10 Essential (primary) hypertension; I48.91 Unspecified atrial fibrillation; F03.90 Unspecified dementia, unspecified severity, without behavioral disturbance, psychotic disturbance, mood disturbance, and anxiety; E78.5 Hyperlipidemia, unspecified; M54.9 Dorsalgia, unspecified; Z96.643 Presence of artificial hip joint, bilateral; Z95.1 Presence of aortocoronary bypass graft; I25.10 Atherosclerotic heart disease of native coronary artery without angina pectoris
CPT/HCPCS: 36415; 51700; 70450; 71045; 71046; 71250; 72125; 72170; 80048; 80053; 81001; 82550; 82553; 83605; 83735; 84484; 85025; 85610; 85730; 87040; 87086; 93005; 96361; 97139; 99284; J0456; J0696; J2060; J7030